=== PATIENT | female | born 1990 | race Caucasian/White ===

== ENCOUNTER → 2023-10-02 15:29 | Outpatient (REF) | payer BC, SELFPAY | LOC: PNTC 15:29 | PROVIDERS: ATTENDING PHYSICIAN Obstetrics & Gynecology | DX: O36.8190 Decreased fetal movements, unspecified trimester, not applicable or unspecified (principal); O71.9 Obstetric trauma, unspecified | CPT/HCPCS: 59025; 76815 ==

== ENCOUNTER 2023-10-14 07:47 | Inpatient (IN) | payer BC, SELFPAY ==
[2023-10-14] MEDS: LR 1000 IV ×3 (08:15→11:40)
[2023-10-14 08:19] VITALS: BP 111/71; BMI 27.5
[2023-10-14 08:27] LABS: Hematocrit 34.8 % (37.0-47.0); Hemoglobin 11.8 g/dL (12.0-16.0); Mean Corp Hgb Conc. 33.9 g/dL (33.0-37.0); Mean Corpuscular Hgb 28.8 pg (27.0-31.0); Mean Corpuscular Volume 84.9 fL (81.0-99.0); Mean Platelet Volume 10.4 fL (7.4-10.4); Platelet Count 186 10^3/uL (130-400); Red Cell Dist. Width 13.2 % (11.5-14.5); White Blood Cell Count 10.5 10^3/uL (4.8-10.8)
[2023-10-14] MEDS: TYLENOL 1000 MG PO (09:46)
[2023-10-14] MEDS: ANCEF 10 IV (09:46)
[2023-10-14] MEDS: BICITRA 30 ML PO (09:46)
[2023-10-14] MEDS: PITOCIN 30 UNITS/NSS 500 ML IV (10:44)
[2023-10-14] MEDS: ZOFRAN 4 MG IV ×2 (14:33→17:56)
[2023-10-14] MEDS: TORADOL 15 MG IV ×2 (17:17→22:52)
[2023-10-14] MEDS: LR 500 IV (20:29)
[2023-10-14] MEDS: BENADRYL 25 MG IV (20:36)
--- NOTE | 2023-10-15 04:10 | DOWNTIME ---
There was a [employer] Client Teller Head Downtime on 10/15/2023 from 0111 to 10/15/2023 at 0405. Downtime documentation of patient's care, including medication administrations, has been reconciled in the electronic record per guidelines. Refer to the
patient's paper chart under the miscellaneous tab to see printed paper medication records and downtime forms.
[2023-10-15] MEDS: TORADOL 15 MG IV ×2 (05:05→11:02)
[2023-10-15 05:35] LABS: Hematocrit 28.6 % (37.0-47.0); Hemoglobin 9.9 g/dL (12.0-16.0); Mean Corp Hgb Conc. 34.6 g/dL (33.0-37.0); Mean Corpuscular Hgb 29.2 pg (27.0-31.0); Mean Corpuscular Volume 84.4 fL (81.0-99.0); Mean Platelet Volume 10.5 fL (7.4-10.4); Platelet Count 188 10^3/uL (130-400); Red Blood Cell Count 3.39 10^6/uL (4.20-5.40); Red Cell Dist. Width 13.2 % (11.5-14.5); White Blood Cell Count 16.3 10^3/uL (4.8-10.8)
--- NOTE | 2023-10-15 07:36 | W.PN.ANS.POP ---
Anesthesia Post Operative
- Anesthesia Post Op Note
Vital Signs Stable-See Nursing Note: Yes
Airway Patent: Yes
Adequate Pain Control: Yes
Change in Mental Status: No
Current Postoperative Nausea & Vomiting: No
Anesthesia Complications: No
General Anesthetic Recall: No
Unplanned Admission: No
Post Op Hydration Adequate: Yes
- -
Pt awake and alert, resting comfortably with no anesthesia related c/o at time of post op visit.
[2023-10-15] MEDS: MIRALAX 17 GRAMS PO (08:44)
[2023-10-15] MEDS: ZOLOFT 25 MG PO (08:44)
[2023-10-15] MEDS: MOTRIN 600 MG PO ×2 (16:41→23:50)
[2023-10-16] MEDS: TYLENOL 650 MG PO (05:49)
[2023-10-16] MEDS: MOTRIN 600 MG PO (05:49)
[2023-10-16] MEDS: MIRALAX 17 GRAMS PO (07:52)
[2023-10-16] MEDS: ZOLOFT 25 MG PO (07:52)
--- NOTE | 2023-10-16 10:39 | W.DS.TRANS ---
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
-
Discharge Instructions:
Discharge Diagnosis/Procedures rcs
Instructions:
Stand-Alone Forms: LDRP Delivery
Changes to Home Medications: No
Discharge Medications:
DC Medications w/original date entered in [facility]
Zoloft 25 mg PO DAILY 10/14/23
famotidine 20 mg tablet (Pepcid) 20 mg PO DAILY 10/14/23
polyethylene glycol 3350 17 gram oral powder packet (Miralax) 17 g PO DAILY 10/14/23
Home Medication Changes
Pending Results: No
--- NOTE | 2023-10-16 11:42 | CM ---
CM met with new mom to discuss d/c planning
Mom reporting she lives with Panda and her son Wilmar. Her husbands parents also live in the home
Baby's name is Steve. She is planning to breastfeed and has a breast pump.
Mom reporting she has all needs for her son including a bassinet and car seat.
Technical Implementation Lead for Steve will be ROSEY Lo and she will make an appointment for her son.
Mom plan to f/u at [facility]
CM will follow for additional d/c needs
[2023-10-17 15:35] LABS: Syphilis/T. pallidum Ab Reflex Negative (Negative)
== END 2023-10-16 14:29 | disposition home or self-care (01) | DRG 788 ==
LOC: LDRP 07:47
PROVIDERS: ADMITTING PHYSICIAN Obstetrics & Gynecology
PROC: 10D00Z1 Extraction of Products of Conception, Low, Open Approach (ICD-10-PCS; 2023-10-14)
DX: O34.211 Maternal care for low transverse scar from previous cesarean delivery (principal); Z3A.39 39 weeks gestation of pregnancy; Z37.0 Single live birth; O90.81 Anemia of the puerperium; D64.9 Anemia, unspecified; Z82.49 Family history of ischemic heart disease and other diseases of the circulatory system; O99.344 Other mental disorders complicating childbirth; F41.9 Anxiety disorder, unspecified; L40.9 Psoriasis, unspecified; O99.72 Diseases of the skin and subcutaneous tissue complicating childbirth
CPT/HCPCS: 36415; 85027; 86780; 86850; 86900; 86901

== ENCOUNTER → 2024-06-17 09:56 | Outpatient (REF) | payer OTHER, SELFPAY ==
[2024-06-17 10:52] LABS: % Basophils 0.8 % (0-2); % Eosinophils 0.8 % (0-6); % Immature Granulocytes 0.4 % (0-0.5); % Lymphocytes 26.2 % (20.5-51.1); % Monocytes 8.9 % (1.7-9.3); % Neutrophils 62.9 % (42.2-75.2); Absolute Lymphocytes 1.4 10^3/uL (1.2-3.4); Absolute Monocytes 0.5 10^3/uL (0.1-0.6); Absolute Neutrophils 3.3 10^3/uL (1.4-6.5); Hematocrit 40.2 % (37.0-47.0); Hemoglobin 13.2 g/dL (12.0-16.0); Mean Corp Hgb Conc. 32.8 g/dL (33.0-37.0); Mean Corpuscular Hgb 28.9 pg (27.0-31.0); Mean Corpuscular Volume 88.2 fL (81.0-99.0); Mean Platelet Volume 10.2 fL (7.4-10.4); Nucleated Red Blood Cells % 0 %; Platelet Count 234 10^3/uL (130-400); Red Blood Cell Count 4.56 10^6/uL (4.20-5.40); White Blood Cell Count 5.2 10^3/uL (4.8-10.8)
[2024-06-17 11:56] LABS: ALT (SGPT) 32 U/L (0-35); AST (SGOT) 34 U/L (14-36); Albumin 4.8 g/dl (3.5-5.0); Alkaline Phosphatase 42 U/L (38-126); Blood Urea Nitrogen 14 mg/dl (7-17); Calcium 9.6 mg/dl (8.4-10.2); Carbon Dioxide 25 mmol/L (22-30); Chloride 103 mmol/L (98-107); Glucose 84 mg/dl (70-99); HDL Cholesterol 60 mg/dl; LDL Cholesterol, Calculated 111 mg/dl; Potassium 4.6 mmol/L (3.5-5.1); Sodium 140 mmol/L (135-145); Total Bilirubin 0.7 mg/dl (0.2-1.3); Total Cholesterol 187 mg/dl (50-199); Total Protein 7.5 g/dl (6.3-8.2); Triglyceride 81 mg/dl (10-149); Very Low Density Lipoprotein 16 mg/dl (0-30); eGFR > 60.00
== END ==
LOC: REG 09:56
PROVIDERS: ATTENDING PHYSICIAN Nurse Practitioner Family
DX: Z00.00 Encounter for general adult medical examination without abnormal findings (principal); Z13.220 Encounter for screening for lipoid disorders
CPT/HCPCS: 36415; 80053; 80061; 85025

== ENCOUNTER 2024-10-11 16:07 | Emergency (ER) | payer OTHER, SELFPAY ==
[2024-10-11 16:22] VITALS: BP 129/78
[2024-10-11 16:53] LABS: Hematocrit 38.2 % (37.0-47.0); Hemoglobin 12.6 g/dL (12.0-16.0); Mean Corpuscular Hgb 28.9 pg (27.0-31.0); Mean Corpuscular Volume 87.6 fL (81.0-99.0); Mean Platelet Volume 9.9 fL (7.4-10.4); Platelet Count 197 10^3/uL (130-400); Red Blood Cell Count 4.36 10^6/uL (4.20-5.40); Red Cell Dist. Width 12.8 % (11.5-14.5); White Blood Cell Count 6.2 10^3/uL (4.8-10.8)
[2024-10-11 17:08] LABS: % Basophils 0.5 % (0-2); % Eosinophils 0.3 % (0-6); % Immature Granulocytes 0.3 % (0-0.5); % Lymphocytes 25.6 % (20.5-51.1); % Monocytes 6.5 % (1.7-9.3); % Neutrophils 66.8 % (42.2-75.2); Absolute Lymphocytes 1.6 10^3/uL (1.2-3.4); Absolute Monocytes 0.4 10^3/uL (0.1-0.6); Absolute Neutrophils 4.1 10^3/uL (1.4-6.5); Nucleated Red Blood Cells % 0 %
[2024-10-11 17:13] LABS: HCG, Serum Qualitative Screen Negative
[2024-10-11 17:16] LABS: ALT (SGPT) 28 U/L (0-35); AST (SGOT) 28 U/L (14-36); Albumin 4.7 g/dl (3.5-5.0); Alkaline Phosphatase 39 U/L (38-126); Blood Urea Nitrogen 13 mg/dl (7-17); Calcium 9.1 mg/dl (8.4-10.2); Carbon Dioxide 26 mmol/L (22-30); Chloride 101 mmol/L (98-107); Glucose 79 mg/dl (70-99); Potassium 3.9 mmol/L (3.5-5.1); Sodium 136 mmol/L (135-145); Total Bilirubin 0.7 mg/dl (0.2-1.3); Total Protein 7.1 g/dl (6.3-8.2); eGFR > 60.00
[2024-10-11 17:53] LABS: Lipase 103 U/L (23-300)
[2024-10-11 20:19] VITALS: BP 104/68; BMI 23.2
--- NOTE | 2024-10-11 20:51 | ED.GENMED ---
History of Present Illness
General
Chief Complaint: Abdominal Symptoms
Source: patient
Exam Limitations: none
Time Seen by Provider: 10/11/24 19:32
Nursing documentation reviewed up to this point in time: agreed with
History of Present Illness
History of Present Illness:
Patient is a 34-year-old female presenting to the emergency department for evaluation of upper abdominal pain. Patient describes a dull pain in her upper abdomen over the past week since her [employer] dinner at a restaurant. However�last
night after dinner pain worsened and was associated with nausea and vomiting. Patient denies any radiation of pain into lower abdomen or back. Patient denies any fever, chest pain, or shortness of breath. Given persistence of pain patient
presents to the emergency department for evaluation. Pain is much more dull in comparison to last night. She has not vomited since last night. Patient denies any changes in bowel habits. No melena or hematochezia. No hemoptysis or hematemesis.
LMP 2 weeks ago.
Patient denies any known sick contacts.
Review of Systems
Review of Systems
Allergies reviewed?: Yes
All Other Systems: ROS reviewed and negative except as documented in HPI and ROS
Phy Exam
Physical Exam
Physical Exam:
Vitals: Patient's vital signs are stable. Afebrile
General: Patient is very well appearing, no acute distress
Skin: Warm and dry, no rashes or lesions
Head: Normocephalic, atraumatic
Eyes: Sclera nonicteric. EOMs intact. No nystagmus.
Throat: Protecting airway
Neck: Normal ROM, no cervical spine tenderness, no meningismus
Cardiac: Regular rate and rhythm, no murmurs. No reproducible chest wall tenderness.
Pulm: Normal respiratory effort, no wheezes, rales, rhonchi heard on exam.. O2 saturation 100 on room air.
Abdomen: Abdomen soft. Very mild epigastric abdominal tenderness without rebound tenderness or guarding. Negative Langston sign.
Extremities: No evidence of cyanosis or edema. Palpable DP pulses bilaterally
Neuro: AAOx3. Grossly intact.
Psychiatric: Normal affect.
Course
Orders/Labs/Results
Orders:
Orders
10/11/24 16:28
Test Result ONCE
US Abdomen Complete/Upper Urgent
Comment: symptoms worse after eating.
Reason For Exam: Upper abd pain, nausea, vomiting,
10/11/24 16:34
Complete Blood Count/With Diff Urgent
Comprehensive Metabolic Panel Urgent
HCG, Serum Qualitative Screen Urgent
Lipase Urgent
10/11/24 20:50
Mag Hydrox/Al Hydrox/Simeth [Maalox] 30 ml Phenobarb/Hyoscy/Atropine/Scop [] 10 ml Viscous Lidocaine 2% [Xylocaine Viscous Cup] 10 ml PO NOW
10/11/24 20:51
Electrocardiogram (*1) Urgent
Reason for Study: Abdominal Pain
EKG- Treatment ONCE
10/11/24 21:16
Mag Hydrox/Al Hydrox/Simeth [Maalox] 30 ml .ROUTE .STK-MED ONE
Phenobarb/Hyoscy/Atropine/Scop [] 10 ml .ROUTE .STK-MED ONE
10/11/24 21:17
Viscous Lidocaine 2% [Xylocaine Viscous Cup] 15 ml .ROUTE .STK-MED ONE
10/11/24 16:34
10/11/24 16:34
Vital Signs
Initial and Last Documented VS:
Initial Vital Signs
Temp Pulse Resp BP Pulse Ox
98.2 F 73 18 129/78 100
10/11/24 16:22 10/11/24 16:22 10/11/24 16:22 10/11/24 16:22 10/11/24 16:22
Last Documented Vital Signs
Temp Pulse Resp BP Pulse Ox
98.4 F 64 18 104/68 100
10/11/24 20:19 10/11/24 20:19 10/11/24 22:15 10/11/24 20:19 10/11/24 22:15
MDM/Problems Addressed
Differential Diagnosis Includes:
Not limited to: Gastritis, GERD, peptic ulcer, cholelithiasis, cholecystitis, pancreatitis,
MDM/Problems Addressed:
34 year old female with vague upper abdominal pain worse after eating over the past week. She has had one episode of vomiting last night. No fevers or chills. No chest pain or shortness of breath. Patient has stable vital signs on arrival. She is
afebrile and nontoxic appearing. Pain very minimal at this time. Benign abdominal exam with negative Langston sign. Do not suspect cardiac/pulmonary etiology. Basic labs and abdominal US ordered in triage without any abnormalities. Low suspicion for
acute intraabdominal infection given patient afebrile with no leukocytosis and benign abdominal exam. Given no evidence of cholelithiasis on US - other likely differential is gastritis. Will treat with GI cocktail. Do not suspect cardiac etiology -
although will screen with EKG.
Update: EKG shows NSR without signs of ischemia. Patient with essentially complete resolution in symptoms following GI cocktail in ED. Suspect gastritis. No indication for admission. Feel stable for discharge with PPI and primary f/u. Referral info
given to GI. Patient comfortable with plan. Discussed with attending physician.
Chronic conditions affecting care:
N/A
Acute Exacerbation and/or Progression of Chronic Illness:
N/A
*Radiology
Radiology exam reviewed: radiology read reviewed
*Pulse Oximetry
Patient hypoxic: no
*EKG
Interpreted by ED Provider?: Yes
EKG Intrepretation Date: 10/11/24
Interpretation: normal
Comparison EKG: no comparison EKG present
Heart Rate: 67
Rate: normal
Rhythm: sinus
[place]: normal axis
Interval: normal interval
QRS Pattern: normal QRS
Ischemia: no ischemia
*Police Booking Officer Interpretation
Rate: Police Booking Officer- N/A
*Critical Care Note
Total Time (30-74mins, 75-104mins- exclusive of procedures): Not Applicable
ED Attending Note
-
Portions of this chart may have been created with voice recognition software.� Occasional wrong word or��sound alike� substitutions may have occurred due to the inherent limitations of voice recognition software.
Discharge Plan
Departure
Patient Disposition: Home (Routine Discharge)
Date of Disposition: 10/11/24
Time of Disposition: 22:04
Patient with high blood pressure during this ER visit?: No
Condition: Good
Discharge Problem:
Gastritis
Instructions: Gastritis - ED discharge instructions, Abdominal Pain
Prescriptions:
New
pantoprazole [Protonix] 40 mg tablet,delayed release (DR/EC)
40 mg PO DAILY Qty: 14 0RF
sucralfate [Carafate] 1 gram tablet
1 g PO TID Qty: 21 0RF
Referrals:
Cyndie Chavez MD [Active] - Next open appointment
Shelly Kirk MD [Family Provider] -
Activity Restrictions/Additional Instructions:
Return to the emergency department with any intractable abdominal pain, nausea/vomiting, high fevers, chest pain/shortness of breath, blood in stool or vomit, worsening in current symptoms, or any other concerns
-As discussed�your lab work and abdominal ultrasound showed no abnormalities today.
-A prescription for pantoprazole and carafate has been sent to pharmacy. You can take these for the next few weeks. You should follow-up with GI for further evaluation/management. You may require an endoscopy in the future.
-Is important stay well-hydrated. Avoid spicy or acidic foods.
-Follow-up with PCP by the end of the week to ensure symptoms are improving
Monitor your symptoms closely and return to the emergency department with any acute worsening/new symptoms or any other concern
Interventions
Interventions:
*Risk Screen - Suicide Last Done: 10/11/24 20:17
*General Assessment Last Done: 10/11/24 20:17
*Neglect/Abuse Screening Last Done: 10/11/24 20:17
ED- Fall Risk Assessment Last Done: 10/11/24 20:22
*ED COVID-19 Vaccine History Last Done: 10/11/24 22:15
*Nursing Disposition Last Done: 10/11/24 22:15
BZ-Hzggrq-Lctmtzlxiv Assessment Last Done: 10/11/24 20:22
Discharge Date and Time
Discharge Date/Time: 10/11/24 22:16
Print Language: UKRAINIAN
[2024-10-11] MEDS: MAALOX 50 PO (21:19)
== END 2024-10-11 22:16 | disposition home or self-care (01) ==
LOC: EMR 16:07
PROVIDERS: Emergency Medicine; EMERGENCY PHYSICIAN Student in an Organized Health Care Education/Training Program; FAMILY PHYSICIAN Family Medicine
DX: K29.70 Gastritis, unspecified, without bleeding (principal)
CPT/HCPCS: 99284; 76700; 80053; 83690; 84703; 85025; 93005